=== PATIENT | female | born 1970 | race Caucasian/White ===

== ENCOUNTER 2024-10-03 12:57 | Outpatient (AMB) | payer OTHER, SELFPAY ==
--- OUTSIDE RECORDS SUMMARY | 2024-10-03 12:59 | XMS_ITS | Data Portability ---
Author Organization Formerly [facility] -[place], [facility] Address [address] [place] [address] Care Team Providers Care Butcher'S Assistant Name Role Phone WASHINGTON KHAN Primary Care Provider Assessment Encounter Date Assessment Date Assessment LastModified by Organization Details LastModified Time 05/28/2023 05/28/2023 - Reviewed medications and treatment plan with the patient - Discussed OTC medications for symptomatic control - Advised to f/u with PCP if symptoms do not improve or worsen - Patient is well-appearing and in no acute distress on discharge - Discussed reasons to call, return to the office, or go to the ED including new or worsening symptoms [email or web address] Not available 05/28/2023 10:21:41 Plan of Treatment Reminders Order Date Submit Date Provider Last Modified By Organization Details Last Modified Time Details Appointments None record ed. Lab None record ed. Referral None record ed. Procedures None record ed. Surgeries None record ed. Imaging None record ed. Medication Orders None record ed. Patient TargetsNo targets recorded. Patient InstructionsNo instructions recorded. Reason for Referral None Reported. Problems No Known Problems Procedures Surgical History Date Name Laterality Status Provider Name and Address Organization Details Recorded Time 3 Ear Cerumen Removal completed Margi Cortés NP [address] [facility] [place], [address], [facility] 05/28/2023 10:21:21 Imaging Results None recorded. Procedure Notes None recorded. Medical Equipment None Reported. Allergies No known drug allergies Medications Not known to be on any medication Vitals Date Recorded Respiratory rate Body height Body mass index (BMI) Body weight Heart rate Oxygen saturation Oxygen saturation in Arterial blood by Pulse oximetry Body temperature Systolic blood pressure Diastolic blood pressure Provider Name and Address Organization Details Last Updated DateTime 3 16 /min 170.18 cm 25.1 kg/m2 91716.7 8 g 65 /min 99 % 99 % 98.6 [degF] 108 mm[Hg] 70 mm[Hg] Dunia Hernandezkath [facility] 3 09:32:57 Social History Question Answer Notes LastModified by Organizat ion Details LastModified Time Tobacco Smoking Status Current Every Day [facility] 05/28/2023 09:31:04 What Is Your Level Of Alcohol Consumption? None Information not available 05/28/2023 How Much Tobacco Do You Smoke? 1 PPD Information not available 05/28/2023 Do You Use Any Illicit Or Recreational Drugs? No Information not available 05/28/2023 Sex: Unknown Functional Status None recorded. Mental Status None recorded. Family History Nothing Reported Notes:FamilyHistoryDetails:F ather- - Bone Cancer Mother- Alive Medical History No medical history recorded. Gynecological HistoryNo gynecological history recorded. Obstetrics History GPAL:G 0 P 0 0 0 0 Immunizations Vaccine Type Date Status Note Provider Nam e and Address Organization Details Recorded Time Influenza, MDCK, quadrivalent, PF 0 completed Dunia Davidempo [facility] 05/28/2023 09:31:10 COVID-19, mRNA, LNP-S, PF, 100 mcg/0.5mL dose or 50 mcg/0.25mL dose 1 completed Dunia Davidempo [facility] 05/28/2023 09:31:10 COVID-19 vaccine, vector-nr, rS-Ad26, PF, 0.5 mL 1 completed Dunia Shericejose albertoempo [facility] 05/28/2023 09:31:11 Tdap 1 completed Dunia Davidcorybeti [facility] 05/28/2023 09:31:11 Influenza, split virus, trivalent, preservative 1 completed Dunia palmer [facility]/[place]/ [place] 05/28/2023 09:31:11 Past Encounters Encounter ID Performer Location Encounter Start Date Encounter Closed Date Diagnosis/Indication Diagnosis SNOMED-CT Code Diagnosis ICD10 Code Diagnosis Note [id number] Margi Cortés NP [place] [place] [address] [place] [address] 05/28/2023 09:00:19 05/28/2023 10:34:10 Impacted cerumen of bilateral ears 7968426403 190755 H61.23 Consider OTC debrox or 1-2 drops mineral oil or baby oil once weekly to help soften ear wax.Approp riate use of qtips demonstrat ed. Reinforced avoidance of inserting q-tip into ear canal.Pt verbalized good understand ing. Health Concerns Section Related Observation LastModified by Organization Detai ls LastModified Time None Recorded Concern Status LastModified by Organization Details LastModified Time None Recorded Advance Directives Directive None Recorded Payers Encounter Date Sequence Insurance Name Policy Number Policy Joshi Covered Member ID Joshi Member ID Guarantor Name 05/28/2023 1 [facility] Coleman Kristan [id number] Tahira Rushing Notes Date Note Type Note Provider Name and Address Organization Details Recorded Time 05/28/2023 text/html 52 yo f presents with b/l ear blockage, left worse with decreased hearing Once yearly requires ear wax removal. Denies f/c, dizziness, ear pain, nasal congestion, cough Margi Cortés NP [address], [place], [address], [place] [facility]/[place] 05/28/2023 10:22:52 OBGyn Episode No OBEpisode recorded.
--- OUTSIDE RECORDS SUMMARY | 2024-10-03 12:59 | XMS_ITS | Data Portability ---
Author Organization [place] - [facility], [place] Address [address] [place] [address] Care Team Providers Care Area Mechanic Name Role Phone [facility] Primary Care Provider Assessment Encounter Date Assessment Date Assessment LastModified by Organization Details LastModified Time 05/27/2021 05/27/2021 Tahira is a 50 y/o who presents with dysfunctional uterine bleeding. TVUS from 02/2021 remarks on the following: -intramural fibroid at fundus measuring 2.7 by 2.8 by 3.0 cm -fundal fibroid measuring 3.3 by 2.8 by 3.6 cm -right sided intramural fibroid measuring 2.8 by 2.7 by 2.6 cm -EMS echogenic, measuring 9.1mm. -R ov 3.4 by 1.7 by 1.7 cm, thick walled 1.3 cm cyst representing CL -L ov 4.2 by 2.9 by 3.3 cm w/ complex cyst measuring 3.3 by 3.0 by 3.4 w/ thin reticular septations, likely hemorrhagic cyst. Addl simple cysts noted measuring up to 2.0cm Discussed differential diagnosis for DUB, including perimenopausal transition, endometrial polyp/hyperplasi a, and less likely cancer. Discussed my suspicion that this is likely 2/2 perimenopause. However, would recommend endometrial biopsy to rule out other potential etiologies. She is in agreement with this plan. U/S done in February 2021 also notable for hemorrhagic cyst. Cysts described are normal, pt reassured. Will order TVUS in the next month to follow up. She prefers to wait for EMB to be done at the time of U/S. All questions answered. Marquise Jordan MD, MPH [email or web address] Not available 05/27/2021 15:11:52 08/18/2021 08/18/2021 50 yo with AUB s/p EMB. Has f/u to discuss results with Dr. Garcia 08/26. [email or web address] Not available 08/18/2021 14:37:44 08/26/2021 08/26/2021 Tahira is a 50 y/o who presents for a telehealth visit to discuss the results of recently done TVUS and EMB. -reviewed nl EMB results -TVUS demonstrates stable uterine fibroids and simple ovarian cyst -given that her bleeding is improved and occurring less frequently than normal, discussed she is likely in the perimenopausal phase -she would prefer expectant management at this time unless bleeding worsens, in which case she will schedule a follow up to discuss other options -all questions answered Marquise Jordan MD, MPH [email or web address] Not available 08/26/2021 14:16:21 Plan of Treatment Reminders Order Date Submit Date Provider Last Modified By Organization Details Last Modified Time Details Appointments None recorded. Lab biopsy, endometria l 2020 021 [facility], [address] [place] [address], [address], 10:02:25 Referral None recorded. Procedures None recorded. Surgeries None recorded. Imaging None recorded. Medication Orders None recorded. Patient TargetsNo targets recorded. Patient InstructionsNo instructions recorded. Reason for Referral None Reported. Results Created Date Observation Date Name Description Value Unit Range Abnormal Flag Note LastModifiedBy Organization Detail LastModifiedTime 08/18/2008/24/2021 SURGI TITO PATHO LOGY REPOR T surgical pathology report Patie nt Name: Tahira Rushing XR Chart ID: [id number] [id number] Surgi tito Patho logy Repor t Colle cted: 08/18 18:00 EST Speci men #: [id number] Recei bladimir: 08/19 04:29 EST Surgi tito Patho logy Repor t - 08/24 15:26 EST - Auth (Veri fied) Diagn osis A. Endom etriu m, biops y: - Disin tegra ting endom etriu m with exoge nous hormo ne effec t, blood and mucus . CJS/j s 08/24 15:25 :27 EST C Scott Mc MD Elect abhishek boyce julian d: 08/24/ CS Clini tito Infor matio n AUB. N93.9 . Abnor mal uteri ne and vagin al bleed ing, unspe cifie d. Abnor mal bleed ing ?: Y. /sb Organ Or Tissu e Endom etriu m Gross Descr iptio n Recei bladimir in one part in forma royce label ed Tahira Rushing ( 10/06 ) endo metri um . It consi sts of mucus , blood clot and wilks soft tissu es altog ether measu ring 3 x 2 x 0.3 cm. (ax) (A1-A 3) TRISH/da d 08/19 11:40 :16 EST Not Available [facility] [address], [address], 08/24/2021 15:26:28 05/28/20 21 02/16/2021 MAMMO , scree cecilia, tomos ynthe sis, bilat eral No observ ation record ed. BARCODE Not Available 2020 13:24:40 08/19/20 21 08/18/2021 US, pelvi s, trans abdom inal + trans vagin al No observ ation record ed. esantamariaflor e Not Available 08/26/2021 09:57:58 Result Notes None recorded. Procedures Surgical History Date Name Laterality Status Provider Name and Address Organization Details Recorded Time 08/18/20 21 Endometrial Biopsy completed Annamarie Pak MD [address] [place] [address],[address], [place], [address], [facility] 08/18/2021 14:36:21 08/18/20 21 Pelvic Transvaginal Non-OB completed HUSSAIN GUILLAUME [address], [place], [address], [facility] 08/18/2021 15:23:37 Dilation and Curettage completed Ivania Harper [facility] 05/27/2021 12:47:57 Back Surgery completed Ivania Harper [facility] 05/27/2021 12:48:10 procedure on foot completed Ivania Harper [facility] 05/27/2021 12:48:21 Imaging Results Imaging Date Name Status LastModified by Organization Details LastModified Time 02/16/2021 MAMMO, screening, tomosynthesis, bilateral completed BARCODE Information not available 05/28/2021 13:24:40 08/18/2021 US, pelvis, transabdominal + transvaginal completed [email or web address] Information not available 08/26/2021 09:57:58 Procedure Notes None recorded. Medical Equipment None Reported. Allergies No known drug allergies Medications Name Sig Start Date Stop Date Status Note LastModified by Organization Details LastModified Time prednisone 10 mg tablet TAKE 5 TABLETS ON DAY 1 AND THEN DECREASE BY 1 TAB EACH DAY UNTIL FINISHED 05/27 completed Not Available Not Available Not Available lorazepam 0.5 mg tablet active Not Available Not Available Not Available Ear Wax Removal Drops 6.5 % active Not Available Not Available Not Available Vitals Date Recorded Body height Body mass index (BMI) Body weight Systolic blood pressure Diastolic blood pressure Provider Name and Address Organization Details Last Updated DateTime 05/27/2021 170.18 cm 25.5 kg/m2 68438.56 g 140 mm[Hg] 80 mm[Hg] Ivania Harper [facility] 13:09:46 Date Recorded Body height Body mass index (BMI) Body weight Systolic blood pressure Diastolic blood pressure Provider Name and Address Organization Details Last Updated DateTime 08/18/2021 170.18 cm 25.5 kg/m2 38740.56 g 132 mm[Hg] 78 mm[Hg] Ivania Harper [facility] 14:23:47 Social History Question Answer Notes LastModified by Organizat ion Details LastModified Time Tobacco Smoking Status Current Every Day [facility] 05/27/2021 12:49:55 Do You Have An Advance Directive? No Information not available 05/27/2021 What Is Your Level Of Alcohol Consumption? Occasional Information not available 05/27/2021 Are You Currently Employed? Yes Information not available 05/27/2021 What Is The Highest Grade Or Level Of School You Have Completed Or The Highest Degree You Have Received? 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 No Information not available 05/27/2021 What Was The Date Of Your Most Recent Tobacco Screening? 05/27/2021 Information not available 05/27/2021 What Is Your Relationship Status? Information not available 05/27/2021 Do You Use Your Seat Belt Or Car Seat Routinely? Yes Information not available 05/27/2021 At What Age Did You Start Smoking Tobacco? 14 Information not available 05/27/2021 How Much Tobacco Do You Smoke? 1 PPD Information not available 05/27/2021 Do You Use Any Illicit Or Recreational Drugs? No Information not available 05/27/2021 Do You Use Sunscreen Routinely? No Information not available 05/27/2021 How Many Years Have You Smoked Tobacco? 36 Information not available 05/27/2021 Do You Or Have You Ever Used Any Other Forms Of Tobacco Or Nicotine? No Information not available 05/27/2021 Sex: Unknown Functional Status Question Answer Note LastModified by Organizat ion Details LastModified Time What is your exercise level? Occasional Information not available 05/27/2021 Mental Status None recorded. Family History Relationship Description Onset Age of this Age Resolved Age Notes LastModified by Organization Details LastModified Time Maternal Aunt Malignant tumor of breast [email or web address] Not available 2020 12:48:55 Father Malignant tumor of prostate [email or web address] Not available 2020 12:49:04 Mother Hypertensive disorder [email or web address] Not available 2020 12:49:11 Medical History Condition Response Headaches/Migraines Y Gynecological History Statement/Question Response Sexual Orientation? Men Date of LMP 04/09/2021 History of Abnormal Pap Smear? N Sexually Active? Y STIs/STDs N HPV Vaccine N Date of Last Pap Smear Age at Menarche 13 Current Control Method None Most Recent Mammogram Obstetrics History GPAL:G 3 P 2 0 1 2 Type Value Full Term 2 Spontaneous 1 Living 2 Total 3 Past Encounters Encounter ID Performer Location Encounter Start Date Encounter Closed Date Diagnosis/Indication Diagnosis SNOMED-CT Code Diagnosis ICD10 Code Diagnosis Note [id number] MARQUISE JORDAN MD [facility] [address] [place] [address] 05/27/2021 12:15:23 05/27/2021 16:36:29 Abnormal uterine bleeding 2852080233 9100 N93.9 [id number] Annamarie Pak MD [facility] [address] [place] [address] 08/18/2021 13:51:00 08/18/2021 18:18:57 Abnormal uterine bleeding 4122489235 9100 N93.9 [id number] DIANELYS AVILES [facility] [address] [place] [address] 08/18/2021 13:50:16 08/18/2021 18:32:40 [id number] MARQUISE JORDAN MD [facility] [address] [place] [address] 08/26/2021 13:14:03 08/26/2021 18:47:53 Perimenopausal state 5089564263 03921 Z78.0 Health Concerns Section Related Observation LastModified by Organization Detai ls LastModified Time None Recorded Concern Status LastModified by Organization Details LastModified Time None Recorded Advance Directives Directive N: Payers Encounter Date Sequence Insurance Name Policy Number Policy Joshi Covered Member ID Joshi Member ID Guarantor Name 05/27/2021 1 [place] [id number] [employer] [facility] [id number] Tahira Nirk 08/18/2021 1 [place] [id number] [facility] [id number] Tahira Nirk 08/18/2021 1 [place] [facility] (PPO) [id number] Tahira Smithk [id number] Tahira Smithk 08/26/2021 1 [place] [facility] ([place]) [id number] Tahira Smithk [id number] Tahira Rushing Notes Date Note Type Note Provider Name and Address Organization Details Recorded Time 05/27/2021 text/html Tahira presents today as a referral from her PCP for irregular menses. Reports heavier than usual periods alternating with no menses since last July. She has not had a period in the last month. Was evaluated with TVUS that demonstrated multifibroid uterus and ovarian cysts. She presents today for further evaluation and discussion of next steps. Reports associated mood swings in the last few months. Also reports onset of hot flushes. [id number] x1, MAB w/ D&CPMH: deniesPSH: foot surgery, D&C, back surgeryMeds: NoneNKDA MARQUISE JORDAN MD [address] [place] [address],[place] [address], [place], [address], [facility] 05/27/2021 15:12:07 08/26/2021 text/html Tahira presents fo r telehealth visit to discuss results of US and EMB. Reports she is doing well. Has a period every other month now. Lasting 3-4 days. Sometimes heavy. MARQUISE JORDAN MD [address] [place] [address],[facility], [place], [address], [facility] 08/26/2021 14:16:51 OBGyn Episode Ob Episode Information Episode Created Date Number of Fetuses Patient Bloodtype Patient rh Status Prepregnancy Weight lbs Domestic Partner Domestic Partner Phone Father Name Hotel Operations Manager Status 05/27/20 21 1 CLOSED Fetus Data First Name Last Name Admitted to NICU Weight (g) Sex Living Outcome Pediatric Complications Fetus ID Race Codes Race Delivery Type 3486.76 1704 F Full Term [id number] Vaginal Delivery Juan Carlos Calculation Initial Juan Carlos Date Initial Exam Date Initial Exam Provider Initial Ultrasound Date Last Menstrual Period Date Ultra Sound Weeks Gestation 0 Eighteen To Twenty Week Juan Carlos Update Ultra Sound Date Fundal Height At Umbil Quickening Date Ultra Sound Latest Weeks Gestation Final Juan Carlos Confirmed By Final Juan Carlos Confirmed Date Final Juan Carlos Date Ultra Sound Latest Days Gestation 0 0 Menstrual History Last Menstrual Date Menses Monthly On Bcp Conception Prior Menses Frequency Hcg Plus Date Menarche Onset Age Delivery Information Delivery Date Delivery Type Labor Anesthesia Weeks Gestation Incision Type Labor Labor Length Hrs Delivered By Post Complications Tubal Sterilization Discharge Date Comments 8 Discharge Information Feeding Method Contraceptive Method Maternal HG B and HCT Levels Ob Episode Information Episode Created Date Number of Fetuses Patient Bloodtype Patient rh Status Prepregnancy Weight lbs Domestic Partner Domestic Partner Phone Father Name Hotel Operations Manager Status 05/27/20 21 1 CLOSED Fetus Data First Name Last Name Admitted to NICU Weight (g) Sex Living Outcome Pediatric Complications Fetus ID Race Codes Race Delivery Type 3855.53 2 M Full Term [id number] Vaginal Delivery Juan Carlos Calculation Initial Juan Carlos Date Initial Exam Date Initial Exam Provider Initial Ultrasound Date Last Menstrual Period Date Ultra Sound Weeks Gestation 0 Eighteen To Twenty Week Juan Carlos Update Ultra Sound Date Fundal Height At Umbil Quickening Date Ultra Sound Latest Weeks Gestation Final Juan Carlos Confirmed By Final Juan Carlos Confirmed Date Final Juan Carlos Date Ultra Sound Latest Days Gestation 0 0 Menstrual History Last Menstrual Date Menses Monthly On Bcp Conception Prior Menses Frequency Hcg Plus Date Menarche Onset Age Delivery Information Delivery Date Delivery Type Labor Anesthesia Weeks Gestation Incision Type Labor Labor Length Hrs Delivered By Post Complications Tubal Sterilization Discharge Date Comments 4 Discharge Information Feeding Method Contraceptive Method Maternal HG B and HCT Levels Ob Episode Information Episode Created Date Number of Fetuses Patient Bloodtype Patient rh Status Prepregnancy Weight lbs Domestic Partner Domestic Partner Phone Father Name Hotel Operations Manager Status 05/27/20 21 1 CLOSED Fetus Data First Name Last Name Admitted to NICU Weight (g) Sex Living Outcome Pediatric Complications Fetus ID Race Codes Race Delivery Type , Spontane ous [id number] Juan Carlos Calculation Initial Juan Carlos Date Initial Exam Date Initial Exam Provider Initial Ultrasound Date Last Menstrual Period Date Ultra Sound Weeks Gestation 0 Eighteen To Twenty Week Juan Carlos Update Ultra Sound Date Fundal Height At Umbil Quickening Date Ultra Sound Latest Weeks Gestation Final Juan Carlos Confirmed By Final Juan Carlos Confirmed Date Final Juan Carlos Date Ultra Sound Latest Days Gestation 0 0 Menstrual History Last Menstrual Date Menses Monthly On Bcp Conception Prior Menses Frequency Hcg Plus Date Menarche Onset Age Delivery Information Delivery Date Delivery Type Labor Anesthesia Weeks Gestation Incision Type Labor Labor Length Hrs Delivered By Post Complications Tubal Sterilization Discharge Date Comments 07/01/199 6 miscarri a ge Discharge Information Feeding Method Contraceptive Method Maternal HG B and HCT Levels
[2024-10-03 13:02] VITALS: BMI 25.8
--- NOTE | 2024-10-03 13:02 | A.SPINEOV_ITS ---
Vital Signs 10/03/24 13:02 Height 5 ft 7 in Weight 165 lb BMI 25.8 Intake Visit Reasons: Back pain Intake Note: Ms. Rushing is here today c/o low back pain difficulty walking. Graphic Design Teacher Required: No Allergies No Known Allergies Allergy (Verified 10/03/24 13:04) Physical Exam Vital Signs: BMI result Body Mass Index 25.8 Assessment & Plan Assessment & Plan (1) Lumbar disc herniation with radiculopathy: Code(s): M51.16 - Intervertebral disc disorders with radiculopathy, lumbar region Category: Medical Plan Dear colleague On 10/03/2024, I saw for an urgent consult done Kristan with a chief complaint of severe progressive left leg pain. HPI: This 53-year-old female has a history of a lumbar microdiskectomy L5-S1 in 2013 for left-sided leg pain at [facility]. She completely recovered. On 08/23/2024 she suddenly developed left-sided back pain in the next day she was unable to walk. The pain subsided slightly until 10 days ago when she developed severe pain radiating down her left buttock into her calf. She was evaluated by a primary care physician in advised to lay in bed. She denies numbness or weakness but the pain is unbearable. She currently takes codeine for pain control. Tylenol and anti-inflammatory drugs are not helpful. PMH: Noncontributory Medications: Codeine Allergies: NKDA Social history: Employed Physical Exam: Pleasant female in distress due to pain. Straight leg raise is positive at 20 degrees on the left side with radiating pain down her left leg. Motor exam and sensory exam are intact. Ankle reflexes absent on the left side. She walks with an antalgic gait and she stands deviated towards the right side. Radiological Studies: Imaging is not available and will be ordered Impression/Plan: This 53-year-old female is suffering from an acute lumbar radiculopathy most likely due to a recurrent disc herniation L5-S1. The symptoms have been going on for more than 5 weeks and have exacerbated in the last 10 days. I will order an urgent MRI and the patient will drop off the disc for review. Thank you for allowing me to participate in your patients care. total time spent was 50 minutes in counseling ,coordination of plan, personal review of imaging, surgical decision making and subsequent plan Marvin Montano MD, PhD Spine Fellowship Trained Neurosurgeon Director, [facility] Orders: Orders MR lumbar spine wo con Today M51.16 - Intervertebral disc disorders with radiculopathy, lumbar region Coding Level of Care Code New Pt Level 4 (75707) Diagnoses Lumbar disc herniation with radiculopathy M51.16
== END 2024-10-03 13:35 | disposition home or self-care (01) ==
PROVIDERS: Visit Provider Neurological Surgery
DX: M51.16 Intervertebral disc disorders with radiculopathy, lumbar region (principal)
CPT/HCPCS: 99204

== ENCOUNTER → 2024-10-03 12:57 | Outpatient (BNVA) | payer OTHER, SELFPAY | PROVIDERS: Visit Provider Neurological Surgery ==

== ENCOUNTER 2024-10-09 09:01 | Outpatient (REF) | payer OTHER, SELFPAY ==
--- OUTSIDE RECORDS SUMMARY | 2024-10-09 09:36 | XMS_ITS | Data Portability ---
Author Organization [place] - [facility], [facility] Address [address] [place] [address] Care Team Providers Care Agricultural Engineering Technician Name Role Phone [facility] Primary Care Provider Assessment Encounter Date [...] recorded. Lab biopsy, endometria l 2020 021 [facility], [address] [place] [address], [address], 10:02:25 Referral None recorded. Procedures None recorded. [...] nt Name: Tahira Rushing XR Chart ID: [id number] [id number] Surgi tito Patho logy Repor t Colle cted: 08/18 18:00 EST Speci men #: [id number] Recei bladimir: 08/19 04:29 EST Surgi [...] d 08/19 11:40 :16 EST Not Available [facility] [address], [address], 08/24/2021 15:26:28 05/28/20 21 02/16/2021 MAMMO , [...] 21 Endometrial Biopsy completed Annamarie Pak MD [address] [place] [address],[address], [place], [address], [facility] 08/18/2021 14:36:21 08/18/20 21 Pelvic Transvaginal Non-OB completed HUSSAIN GUILLAUME [address], [place], [address], [facility] 08/18/2021 15:23:37 Dilation and Curettage completed Ivania Harper [facility] 05/27/2021 12:47:57 Back Surgery completed Ivania Harper [facility] 05/27/2021 12:48:10 procedure on foot completed Ivania Harper [facility] 05/27/2021 12:48:21 Imaging Results Imaging Date [...] Updated DateTime 05/27/2021 170.18 cm 25.5 kg/m2 26232.56 g 140 mm[Hg] 80 mm[Hg] Ivania Harper [facility] 13:09:46 Date Recorded Body height Body mass index (BMI) Body weight Systolic blood pressure Diastolic blood pressure Provider Name and Address Organization Details Last Updated DateTime 08/18/2021 170.18 cm 25.5 kg/m2 64504.56 g 132 mm[Hg] 78 mm[Hg] Ivania Harper [facility] 14:23:47 Social History Question Answer Notes [...] Or The Highest Degree You Have Received? 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 In EP Information not available [...] SNOMED-CT Code Diagnosis ICD10 Code Diagnosis Note [id number] MARQUISE JORDAN MD [facility] [address] [place] [address] 05/27/2021 12:15:23 05/27/2021 16:36:29 Abnormal uterine bleeding [id number] 9100 N93.9 [id number] Annamarie Pak MD [facility] [address] [place] [address] 08/18/2021 13:51:00 08/18/2021 18:18:57 Abnormal uterine bleeding [id number] 9100 N93.9 [id number] DIANELYS AVILES [facility] [address] [place] [address] 08/18/2021 13:50:16 08/18/2021 18:32:40 [id number] MARQUISE JORDAN MD [facility] [address] [place] [address] 08/26/2021 13:14:03 08/26/2021 18:47:53 Perimenopausal state [id number] 83354 Z78.0 Health Concerns Section Related Observation LastModified by Organization Detai ls LastModified Time None Recorded Concern Status LastModified by Organization Details LastModified Time None Recorded Advance Directives Directive N: Payers Encounter Date Sequence Insurance Name Policy Number Policy Joshi Covered Member ID Joshi Member ID Guarantor Name 05/27/2021 1 [place] [id number] [facility] [id number] Tahira Nirk 08/18/2021 1 [place] [id number] [facility] [id number] Tahira Nirk 08/18/2021 1 [place] [facility] (PPO) [id number] Tahira Smithk [id number] Tahira Smithk 08/26/2021 1 [place] [facility] (PPO) [id number] Tahira Smithk [id number] Tahira Rushing Notes Date Note Type [...] months. Also reports onset of hot flushes. [id number] x1, MAB w/ D&CPMH: deniesPSH: foot surgery, D&C, back surgeryMeds: NoneNKDA MARQUISE JORDAN MD [address] [place] [address],[place] [address], [place], [address], [facility] 05/27/2021 15:12:07 08/26/2021 text/html Tahira presents fo r telehealth visit to discuss results of US and EMB. Reports she is doing well. Has a period every other month now. Lasting 3-4 days. Sometimes heavy. MARQUISE JORDAN MD [address] [place] [address],SUITE [facility], [place], [address], [facility] 08/26/2021 14:16:51 OBGyn Episode Ob Episode Information Episode Created Date Number of Fetuses Patient Bloodtype Patient rh Status Prepregnancy Weight lbs Domestic Partner Domestic Partner Phone Father Name Contract Agent Status 05/27/20 21 1 CLOSED Fetus Data First Name Last Name Admitted to NICU Weight (g) Sex Living Outcome Pediatric Complications Fetus ID Race Codes Race Delivery Type 3486.76 1704 F Full Term [id number] Vaginal Delivery Juan Carlos Calculation Initial Juan [...] Domestic Partner Domestic Partner Phone Father Name Contract Agent Status 05/27/20 21 1 CLOSED Fetus Data First Name Last Name Admitted to NICU Weight (g) Sex Living Outcome Pediatric Complications Fetus ID Race Codes Race Delivery Type 3855.53 2 M Full Term [id number] Vaginal Delivery Juan Carlos Calculation Initial Juan [...] Domestic Partner Domestic Partner Phone Father Name Contract Agent Status 05/27/20 21 1 CLOSED Fetus Data First Name Last Name Admitted to NICU Weight (g) Sex Living Outcome Pediatric Complications Fetus ID Race Codes Race Delivery Type , Spontane ous [id number] Juan Carlos Calculation Initial Juan Carlos Date [...]
== END 2024-10-09 09:02 | disposition home or self-care (01) ==
LOC: CF 09:01
DX: Z13.89 Encounter for screening for other disorder (principal)

== ENCOUNTER 2024-10-17 06:51 | Day surgery (SDC) | payer OTHER, SELFPAY ==
[2024-10-12 13:24] VITALS: BMI 26.2
--- NOTE | 2024-10-15 14:45 | HO.ANESPROP2 ---
Documented by User: Enriqueta Kate NP 10/15/24 14:46 HPI - Anesthesia Eval Consult details Narrative: 54yo F for Left L5-S1 REDO Microdiscectomy, 10/17/24 PMFSH Active Problems Active Problems: All Active Problems Lumbar disc herniation with radiculopathy (Acute) Past Medical History Medical History Shingles Miscarriage Nicotine dependence, unspecified, uncomplicated Melanocytic nevi of lip Inflamed seborrheic keratosis Herniated lumbar intervertebral disc Ceruminosis Environmental and seasonal allergies Depression Anxiety Current every day smoker Sciatica of left side Habitual snoring Asthma Elevated cholesterol Back pain Surgical History Surgical History History of foot surgery History of back surgery Social History Social History Are you a primary healthcare representative to a significant other at home: No Do you presently have visiting nurse or other home services: No Patient Tobacco Use Status: Current everyday Tobacco user Tobacco use type: Cigarette Cigarette Packs Per Day: 1.0 Cigarettes Per Day: 20.0 Use of substances other than those prescribed or required for medical reasons: No Have you been hit, kicked, punched, or otherwise hurt by someone within the past year? If so, by whom?: No Are you DNR?: No Advance Directives: No Advance Directives Information Provided: Yes Advance Directives on File: No Recently lost weight without trying: No Eating poorly because of decreased appetite: No Nutrition Risks: No Nutritional Risk Patient : No : No Poor oral hygiene: Yes (missing teeth and one broken tooth) Meds Allergies Allergy/AdvReac Type Severity Reaction Status Date / Time No Known Allergies Allergy Verified 10/17/24 07:35 Home Medications ?Medication ?Instructions ?Recorded ?Confirmed ?Last Taken ?Type acetaminophen 300 mg-codeine 30 mg 1 tab PO TID PRN Pain 10/12/24 10/12/24 Unknown History tablet multivitamin 1 tab PO DAILY 10/12/24 10/12/24 Unknown History Exam Height,Weight and Vital Signs: Height 5 ft 7 in Weight 75.75 kg Pertinent Lab Results Pertinent Lab Results: CBC and BMP 02/2024 OK Assessment and Plan Assessment Anesthesia Assessment: Chart Reviewed Documented by User: Mel Alcocer MD 10/17/24 10:48 HPI - Anesthesia Eval Consult details Narrative: 54yo F for Left L5-S1 Microdiscectomy REDO, 10/17/24 PMFSH Past Medical History Medical History Shingles Miscarriage Nicotine dependence, unspecified, uncomplicated Melanocytic nevi of lip Inflamed seborrheic keratosis Herniated lumbar intervertebral disc Ceruminosis Environmental and seasonal allergies Depression Anxiety Current every day smoker Sciatica of left side Habitual snoring Asthma Elevated cholesterol Back pain Family History Family history of problems with anesthesia: No Surgical History Surgical History History of foot surgery History of back surgery History of Problems with Anesthesia: No Social History Social History Are you a primary healthcare representative to a significant other at home: No Do you presently have visiting nurse or other home services: No Patient Tobacco Use Status: Current everyday Tobacco user Tobacco use type: Cigarette Cigarette Packs Per Day: 1.0 Cigarettes Per Day: 20.0 Use of substances other than those prescribed or required for medical reasons: No Have you been hit, kicked, punched, or otherwise hurt by someone within the past year? If so, by whom?: No Are you DNR?: No Advance Directives: No Advance Directives Information Provided: Yes Advance Directives on File: No Recently lost weight without trying: No Eating poorly because of decreased appetite: No Nutrition Risks: No Nutritional Risk Patient : No : No Poor oral hygiene: Yes (missing teeth and one broken tooth) Meds Allergies Allergy/AdvReac Type Severity Reaction Status Date / Time No Known Allergies Allergy Verified 10/17/24 07:35 Home Medications ?Medication ?Instructions ?Recorded ?Confirmed ?Last Taken ?Type acetaminophen 300 mg-codeine 30 mg 1 tab PO TID PRN Pain 10/12/24 10/12/24 Unknown History tablet multivitamin 1 tab PO DAILY 10/12/24 10/12/24 Unknown History Exam Height,Weight and Vital Signs: Height 5 ft 7 in Weight 75.75 kg Vital Signs Temp Pulse Resp BP Pulse Ox O2 Del Method 10/17/24 07:33 98.0 F 67 14 121/66 96 Room Air Pertinent Lab Results Pertinent Lab Results: CBC and BMP 02/2024 OK Airway Mallampati Class: II TM Dist: >3cm Neck ROM: Full Loose/Missing/Broken Teeth: Yes (Broken tooth top left back. Missing tooth top left back. Denies loose teeth) Heart: RRR Lungs: CTAB Assessment and Plan Assessment Anesthesia Assessment: Anesthesia Plan Discussed and Chart Reviewed Final Anesthetic Review Family History of Problems with Anesthesia: No History of Problems with Anesthesia: No NPO: Yes ASA Class: II Final Preanesthetic Review: No Changes in Pt Med Stat, Meds/Allgs Chart Reviewed, Consent Obtained/Reviewed and Anes Risks/Benef Reviewed Patient Risk: Intermediate Procedure Risk: Low Assessment/Block/Sedation in SS: Assess/Block/Sedation-SS Anesthetic Plan Anesthetic Plan: GA Disposition: Standard PACU
[2024-10-17] VITALS (11 sets, daily range): BP systolic 110–130; BP diastolic 59–66; PULSE 61–88; RESP 12–17; TEMP 36.1–36.7; O2SAT 96–99; BMI 26.9
--- NOTE | ~2024-10-17 | FL_ITS ---
EXAMINATION: FL GUIDANCE ONLY HISTORY: l5-s1 discectomy COMPARISON: Correlation is made with an outside MRI of the lumbar spine dated 10/04/2024. TECHNIQUE: Fluoroscopy time: 4.1 minutes. Cumulative Dose: 2.9238 mGy. DAP: 0.9467 uGy-m2 (microgray-meter squared). Images: 1. FINDINGS: A single fluoroscopic spot film of the lumbar spine in the lateral projection demonstrates a probe in the L5-S1 intervertebral disc space from a posterior approach. FL/FL guidance in OR IMPRESSION: Fluoroscopy during procedure. Please see procedure report for additional information. Electronically signed by: Mikal Tam MD 10/18/2024 08:22 AM DEST[place]
--- OUTSIDE RECORDS SUMMARY | 2024-10-17 06:54 | XMS_ITS | Clinical Summary ---
Author Organization [facility] [address] Address [address] [place] [address], [address] Care Team Providers Care Service Supervisor Name Role Phone Unavailable Primary Care Provider Unavailabl e Social History Tobacco Use Types Packs/Day Years Used Date Smoking Tobacco: Never Assessed Sex and Gender Information Value Date Recorded Sex Assigned at Not on file Gender Identity Not on file Sexual Orientation Not on file Plan of Treatment Not on file
--- OUTSIDE RECORDS SUMMARY | 2024-10-17 06:54 | XMS_ITS | Continuity of Care Document ---
Author [facility] Address [address] [place] [address] Problems Unknown Problems Results Test Value / Unit Interpretation Reference Ran ge SARS-COV-2 (COVID-19),PCR[94 [id number]]?Collected: 01/17/2020 06:57 PM?Specimen Received: 01/17/2020 06:57 PM? SARS COV-2 INTERPRETATION [[id number]] Negative Mariza l Negative Comment for COVID19 SARS-COV -2 LRNegative (Not Detected) results do not exclude infectioncaused by SARS-CoV-2 and should not be used as the solebasis for treatment or other patient management decisions.Optimum specimen types and timing for peak viral levelsduring infections caused by SARS-CoV-2 have not beendetermined. Collection of multiple specimens (types and timepoints) from the same patient may be necessary to detect thevirus. Improper specimen collection and handling, sequencevariability underlying assay primers and/or probes, or thepresence of organisms in quantities less than the limit ofdetection of the assay may lead to false negative results.Positive and negative predictive values of testing arehighly dependent on prevalence. False negative results aremore likely when prevalence of disease is high.The expected result is Negative (Not Detected).The SARS-CoV-2 test is intended for the presumptivequalitative detection of nucleic acid from LVEP-OwE-0se upper and lower respiratory specimens. Testingmethodology is real-time RT- PCR.Test results must be correlated with clinical presentationand evaluated in the context of other laboratory andepidemiologic data. Test performance can be affectedbecause the epidemiology and clinical spectrum ofinfection caused by SARS-CoV-2 is not fully known. Forexample, the optimum types of specimens, and when tocollect during the course of infection, may not be known.Fact Sheet for Healthcare Providers:https://MedLink/e7jedud(or: https://www.cdc.gov/coronavirus/2019-ncov/downloads/Qrwgtquno-rvh-Nptrcziiru-Pro vider s-nCoV.pdf)Fact Sheet for Patients:https://MedLink/iadw21q(or: https://www.cdc.gov/coronavirus/2019ncov/downloads/Cghodrfzc-rxv-Xkgskmmi- nCoV. pdf)This assay is a real time Reverse Transcriptase PCR assay.It is a Laboratory Developed Test (LDT) validated by [employer] Validation demonstrated the assay hasacceptable characteristics to detect COVID-19 from humanclinical respiratory specimens. Independent review of thisassay by the FDA is not final at this time.[employer] [address] [place] [address] [id number] Director: Wally Warren M.D. [facility]# [id number] Allergies, adverse reactions, alerts No known allergies and adverse reactions Medications No administered medications reported Vital Signs No vital signs reported Social History No smoking Hx information available
--- OUTSIDE RECORDS SUMMARY | 2024-10-17 06:54 | XMS_ITS | Clinical Summary ---
Author Organization [facility] Address [address] [place] [address] Care Team Providers Care Emt I/85 Name Role Phone No, Pcp AEROSPACE STRESS ENGINEER Primary Care Provider Unavailabl e Social History Tobacco Use Types Packs/Day Years Used Date Smoking Tobacco: Never Assessed Comments Unknown Sex and Gender Information Value Date Recorded Sex Assigned at Not on file Legal Sex Female 9:03 AM EST Gender Identity Not on file Sexual Orientation Not on file Plan of Treatment Health Maintenance Due Date Last Done Comments Colorectal Cancer: COLONOSCO PY Screening every 10 yrs (or Modifier) 1971 Depression: Screening Annual ly using PHQ-2/9 in Adults 18 yrs or above (or HM Modifier)([facility]) 1989 Hepatitis C Virus Infection in Adolescents and Adults: Screening (or Modifier) ([facility]) 1989 SDCT Screening Reminder: Amy young for all adults ([facility]) 1989 Tobacco Smoking Cessation: i n Adults excluding Women: Behavioral and Pharmacotherapy Interventions ([facility]) 1989 DTaP/Tdap/Td Vaccines ([facility]) (1 - Tdap) 1990 Cervical Cancer Screenin 1-65 yrs of age (or Modifier) 1992 Cervical Cancer Screening: P ap every 3 yrs pts age 21-65 1992 Cervical Cancer: Pap Screeni ng with Modifier timing ([facility]) 1992 Cervical Cancer: hrHPV alone or with cotesting Pap for Pts 30-65yrs screening every 5yrs ([facility]) 1992 Colorectal Cancer Screening 45 -75 Yrs (or HM Modifier) 2016 Colorectal Cancer: FLEXIBLE SIGMOIDOSCOPY Screening every 5 yrs 2016 Colorectal Cancer: Fecal Immunochemical Test (FIT) Annually [facility] 2016 Colorectal Cancer: High-sens itivity gFOBT Screening Annually [facility] 2016 Colorectal Cancer: Stool Col oguard Screening every 3 yrs 2016 Colorectal Cancer:CT Colonog michael Screening every 5 yrs 2016 Lipid Screening: Every 5 yrs for Women aged 45+ (or HM Modifier) ([facility]) 2017 Breast Cancer: Screening Amy ually age 50-74 yrs (or HM Modifier)([facility]) 2021 Zoster/Shingles Vaccine Seri es Screening: Adults aged 18+ yrs (or HM Modifiers)([facility]) (1 of 2) 2021 Flu Vaccination: Yearly for ages 18mos through 64 years (or Modifier)([facility]) 04/26/2024 COVID-19 Vaccine Screening: Initial Series and Booster Status ([facility]) (2023- season) 2024 Pneumococcal Vaccination Scr eening: Pts 0-19 & 19-64 yrs of age ([facility]) Aged Out No longer eligible based on patient's age to complete this topic Medical Devices Not on file Care Teams Emt I/85 Relationship Specialty Start Date End Date No, Pcp, AEROSPACE STRESS ENGINEER N/A Do not use PCP - General Family Medicine 11/13/20
--- OUTSIDE RECORDS SUMMARY | 2024-10-17 06:54 | XMS_ITS | Data Portability ---
Author Organization [facility], [facility] Address [address] [place] [address] Care Team Providers Care Senior Electronics Design Engineer Name Role Phone WASHINGTON KHAN Primary Care [...] Cerumen Removal completed Margi Cortés NP [address] [facility], [address], [place], [address], [facility]/[place] 05/28/2023 10:21:21 Imaging Results None recorded. Procedure Notes None recorded. Medical Equipment None Reported. Allergies No known drug allergies Medications Not known to be on any medication Vitals Date Recorded Respiratory rate Provider Name a nd Address Organization Details Last Updated DateTime 05/28/2023 16 /min Dunia Interiano [facility]/[place] 05/28/2023 09:30:05 Date Recorded Body height Provider Name an d Address Organization Details Last Updated DateTime 05/28/2023 170.18 cm Dunia Interiano [facility] 05/28/2023 09:30:10 Date Recorded Body mass index (BMI) Body weight Provider Name and Address Organization Details Last Updated DateTime 05/28/2023 25.1 kg/m2 96645.78 g Dunia Interiano [facility]/[place] 05/28/2023 09:30:24 Date Recorded Heart rate Provider Name an d Address Organization Details Last Updated DateTime 05/28/2023 65 /min Dunia Interiano [facility]/[place] 05/28/2023 09:31:31 Date Recorded Oxygen saturation Oxygen saturation in Arterial blood by Pulse oximetry Provider Name and Address Organization Details Last Updated DateTime 05/28/2023 99 % 99 % Dunia Interiano [facility] /[place] 05/28/2023 09:31:35 Date Recorded Body temperature Provider Name a nd Address Organization Details Last Updated DateTime 05/28/2023 98.6 [degF] Dunia Interiano [facility]/[place] 05/28/2023 09:31:58 Date Recorded Systolic blood pressure Diastolic blood pressure Provider Name and Address Organization Details Last Updated DateTime 05/28/2023 108 mm[Hg] 70 mm[Hg] Dunia Interiano [facility]/[place]/ [place] 05/28/2023 09:32:57 Social History Question Answer Notes LastModified by Organizat ion Details LastModified Time Tobacco Smoking Status Current Every Day Smoker Dunia Leolabeti palmer [facility]/[place]/ [place] 05/28/2023 09:31:04 What Is Your Level Of [...] Immunizations Vaccine Type Date Status Note Provider Issa mcduffie and Address Organization Details Recorded Time Influenza, MDCK, quadrivalent, PF 0 completed Dunia Buontempo null, [facility]/ [place] 05/28/2023 09:31:10 COVID-19, mRNA, LNP-S, PF, 100 mcg/0.5mL dose or 50 mcg/0.25mL dose 1 completed Dunia Buontempo null, [facility]/ [place] 05/28/2023 09:31:10 COVID-19 vaccine, vector-nr, rS-Ad26, PF, 0.5 mL 1 completed Dunia Buontempo null, [facility]/ [place] 05/28/2023 09:31:11 Tdap 1 completed Dunia Buontempo null, [facility]/ [place] 05/28/2023 09:31:11 Influenza, split virus, trivalent, preservative 1 completed Dunia Buontempo null, [facility]/ [place] 05/28/2023 09:31:11 Past Encounters Encounter ID Performer Location Encounter Start Date Encounter Closed Date Diagnosis/Indication Diagnosis SNOMED-CT Code Diagnosis ICD10 Code Diagnosis Note [id number] Margi Cortés NP [facility] [address], [place] [address] 05/28/2023 09:00:19 05/28/2023 10:34:10 Impacted cerumen of bilateral ears [id number] H61.23 Consider OTC debrox or 1-2 drops [...] Joshi Member ID Guarantor Name 05/28/[address] [facility] Freeman Cee Kristan [id number] Tahira Kristan Notes Date Note Type Note Provider Name and Address Organization Details Recorded Time 05/28/2023 text/html 52 yo f presents with b/l ear blockage, left worse with decreased hearing Once yearly requires ear wax removal. Denies f/c, dizziness, ear pain, nasal congestion, cough Margi Cortés NP [address], [place], [address], [facility]-[place] 05/28/2023 10:22:52 OBGyn Episode No OBEpisode recorded.
--- OUTSIDE RECORDS SUMMARY | 2024-10-17 06:54 | XMS_ITS | Clinical Summary ---
Author Organization [facility] Address [address] [place] [address] Care Team Providers Care Spa Associate Name Role Phone Pretty Lu Primary Care Provider [phone] Social History Tobacco Use Types Packs/Day Years Used Date Smoking Tobacco: Never Assessed Comments Unknown Sex and Gender Information Value Date Recorded Sex Assigned at Not on file Legal Sex Female 2:44 AM EST Gender Identity Not on file Sexual Orientation Not on file Plan of Treatment Health Maintenance Due Date Last Done Comments HEPATITIS C SCREENING 1988 MAMMOGRAM 2011 COLONOSCOPY (CRC) 2016 COLORECTAL CANCER SCREENING (CRC) 2016 CT COLONOGRAPHY (CRC) 2016 FIT-DNA (CRC) 2016 FIT/iFOBT (CRC) 2016 SIGMOIDOSCOPY (CRC) 2016 ZOSTER VACCINE (1 of 2) 2021 Pap Smear 02/28/2024 02/27/2021, 07/26/2017 INFLUENZA VACCINE (#1) 2024 , 06/22/2020, 06/22/2020, Additional history exists COVID-19 IMMUNIZATION ( season) 2024 07/30/2021, 12/31/2020 Cervical Cancer Screening 02/27/2026 HPV Test 02/27/2026 02/27/2021, 06/28, 10/26/2011 DTAP/TDAP/TD VACCINES (3 - Td or Tdap) 02/27/2031 02/27/2021, 10/22/2010 RSV IMMUNIZATION (1 - 1-dose 75+ series) 2046 IPV VACCINES Aged Out No longer eligi ble based on patient's age to complete this topic Procedures Procedure Name Priority Date/Time Associated Diagnosis Comments +HPV, DNA PROBE, AMPLIFIED Routine 02/27/2021 9:51 AM EDT CYTOLOGY, DIRECT SUPPORT STAFF Timed 02/27/2021 Encounter for gynecological examination without abnormal finding Screening for malignant neoplasm of cervix from Last 3 Months or Most Recently Relevant to Health Maintenance Results * HPV, DNA Probe, Amplified (02/27/2021 9:51 AM EDT) HPV DNA Probe [id number] 9:52 AM EDT Comment:HPV received in lab. HPV DNA negative 03/06/2021 9:08 AM EDT Comment: High Risk HPV mRNA Not Detected by DNA Probe. Assay is FDA-cleared for cervical specimens in Thin prep vials collected with either a broom type device or endocervical brush. Vaginal samples collected by these devices into Thin prep vials has been validated by the laboratory. A negative result may be due to insufficient amount of cellular material. Correlation of HPV and cytology results is required. HPV Probe Perf By Footnote 03/06/2021 9:08 AM EDT Comment: Test Performed by: [facility] [place] [address] 02/27/2021 9:51 AM EDT 03/04/2021 9:[address] [facility] MICROBIOLOGY - GENERAL ORDE RABLES Final Result Performing Organization Address [facility] Co de Phone Number [facility] [address] [place] [phone] * Cytology, DIRECT SUPPORT STAFF (PAP) (02/27/2021) Specimen from genital system (specimen) 02/27/2021 03/03/2021 9:[address] [facility] PATHOLOGY/CYTOLOGY ORDERABL ES Final Result Performing Organization Address [facility] Co de Phone Number [facility] [address] [place] [phone] from Last 3 Months or Most Recently Relevant to Health Maintenance Insurance Care Teams Spa Associate Relationship Specialty Start Date End Date Pretty Lu PA [address] [place], [place] [id number] PCP - General Physician Email Marketing Assistant 03/24/24
--- OUTSIDE RECORDS SUMMARY | 2024-10-17 06:54 | XMS_ITS | Data Portability ---
Author Organization [place] [facility], [facility] Address [address] [place] [address] Care Team Providers Care Cook Cold Meat Name Role Phone [facility] Primary Care Provider Assessment Encounter Date [...] recorded. Lab biopsy, endometria l 2020 021 [facility], [address] [place] [address], [address], 10:02:25 Referral None recorded. Procedures None recorded. [...] nt Name: Tahira Rushing XR Chart ID: [id number] [id number] Surgi tito Patho logy Repor t Colle cted: 08/18 18:00 EST Speci men #: [id number] Recei bladimir: 08/19 04:29 EST Surgi [...] d 08/19 11:40 :16 EST Not Available [facility] [address], [address], 08/24/2021 15:26:28 05/28/20 21 02/16/2021 MAMMO , [...] 21 Endometrial Biopsy completed Annamarie Pak MD [address] [place] [address],[address], [place], [address], [facility] 08/18/2021 14:36:21 08/18/20 21 Pelvic Transvaginal Non-OB completed HUSSAIN GUILLAUME [address], [place], [address], [facility] 08/18/2021 15:23:37 [facility]ilation [facility] 12:47:57 Back Surgery [facility] 05/27/2021 12:48:10 procedure on foot [facility]/27/2021 12:48:21 Imaging Results Imaging Date Name [...] Not Available Vitals Date Recorded Body height Provider Name an d Address Organization Details Last Updated DateTime 05/27/2021 170.18 cm Ivania Chase rn [facility] 05/27/2021 13:03:33 Date Recorded Body mass index (BMI) Body weight Provider Name and Address Organization Details Last Updated DateTime 05/27/2021 25.5 kg/m2 93977.56 g Ivania Harper [facility] 05/27/2021 13:09:42 Date Recorded Body height Provider Name an d Address Organization Details Last Updated DateTime 08/18/2021 170.18 cm Ivania Chase rn [facility] 08/18/2021 14:03:58 Date Recorded Body mass index (BMI) Body weight Provider Name and Address Organization Details Last Updated DateTime 08/18/2021 25.5 kg/m2 07859.56 g Ivania Harper [facility] 08/18/2021 14:23:37 Date Recorded Systolic blood pressure Diastolic blood pressure Provider Name and Address Organization Details Last Updated DateTime 05/27/2021 140 mm[Hg] 80 mm[Hg] Ivania Harper [facility] 05/27/2021 13:09:46 Date Recorded Systolic blood pressure Diastolic blood pressure Provider Name and Address Organization Details Last Updated DateTime 08/18/2021 132 mm[Hg] 78 mm[Hg] Ivania Harper [facility] 08/18/2021 14:23:47 Social History Question Answer Notes LastModified by Organizat ion Details LastModified Time Tobacco Smoking Status Current Every Day Smoker Ivania Harper [facility], [facility] 05/27/2021 12:49:55 Do You Have An Advance Directive? No Information not available 05/27/2021 What Is Your Level Of Alcohol Consumption? Occasional Information not available 05/27/2021 Are You Currently Employed? Yes Information not available 05/27/2021 What Is The Highest Grade Or Level Of School You Have Completed Or The Highest Degree You Have Received? 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 No [...] SNOMED-CT Code Diagnosis ICD10 Code Diagnosis Note [id number] MARQUISE JORDAN MD [facility] [address] [address] 05/27/2021 12:15:23 05/27/2021 16:36:29 Abnormal uterine bleeding [id number] 9100 N93.9 [id number] Annamarie Pak MD [facility] [address] [address] 08/18/2021 13:51:00 08/18/2021 18:18:57 Abnormal uterine bleeding 7619838083 9100 N93.9 [id number] DIANELYS AVILES [facility] [address] [address] 08/18/2021 13:50:16 08/18/2021 18:32:40 [id number] MARQUISE JORDAN MD [facility] [address] [address] 08/26/2021 13:14:03 08/26/2021 18:47:53 Perimenopausal state [id number] 46026 Z78.0 Health Concerns Section Related Observation LastModified by Organization Detai ls LastModified Time None Recorded Concern Status LastModified by Organization Details LastModified Time None Recorded Advance Directives Directive N: Payers Encounter Date Sequence Insurance Name Policy Number Policy Joshi Covered Member ID Joshi Member ID Guarantor Name 05/27/2021 1 [place] [id number] Tahira Nirk [id number] Tahira Nirk 08/18/2021 1 [place] [id number] Tahira Nirk [id number] Tahira Nirk 08/18/2021 1 [place] [id number] Tahira Nirk [id number] Tahira Nirk 08/26/2021 1 [place] [id number] Tahira Nirk [id number] Tahira Nirk Notes Date Note Type Note Provider Name [...] months. Also reports onset of hot flushes. [id number] x1, MAB w/ D&CPMH: deniesPSH: foot surgery, D&C, back surgeryMeds: NoneNKDA MARQUISE JORDAN MD [address] [place] [address],[address] [facility], [place], [address], [place] [facility] 05/27/2021 15:12:07 08/26/2021 text/html Tahira presents fo r telehealth visit to discuss results of US and EMB. Reports she is doing well. Has a period every other month now. Lasting 3-4 days. Sometimes heavy. MARQUISE JORDAN MD [address] [place] [address],[address], [place], [address], [facility] 08/26/2021 14:16:51 OBGyn Episode Ob Episode Information Episode Created Date Number of Fetuses Patient Bloodtype Patient rh Status Prepregnancy Weight lbs Domestic Partner Domestic Partner Phone Father Name Mixing Plant Dumper Status 05/27/20 21 1 CLOSED Fetus Data First Name Last Name Admitted to NICU Weight (g) Sex Living Outcome Pediatric Complications Fetus ID Race Codes Race Delivery Type 3486.76 1704 F Full Term [id number] Vaginal Delivery Jua Ncarlos Calculation Initial Juan Carlos Date Initial Exam [...] Domestic Partner Domestic Partner Phone Father Name Mixing Plant Dumper Status 05/27/20 21 1 CLOSED Fetus Data First Name Last Name Admitted to NICU Weight (g) Sex Living Outcome Pediatric Complications Fetus ID Race Codes Race Delivery Type 3855.53 2 M Full Term [id number] Vaginal Delivery Juan Carlos Calculation Initial Juan [...] Domestic Partner Domestic Partner Phone Father Name Mixing Plant Dumper Status 05/27/20 21 1 CLOSED Fetus Data First Name Last Name Admitted to NICU Weight (g) Sex Living Outcome Pediatric Complications Fetus ID Race Codes Race Delivery Type , Spontane ous [id number] Juan Carlos Calculation Initial Juan Carlos Date [...] Post Complications Tubal Sterilization Discharge Date Comments 6 miscarri a ge Discharge Information Feeding Method Contraceptive Method Maternal HG B and HCT Levels
--- NOTE | 2024-10-17 07:01 | MHC.SHP ---
Pre-Procedural Eval Section A - 24 Hr Update-Section A only Date of Service: 10/17/24 Section B - Complete if H&P > 30 days Chief Complaint: Intervertebral disc disorders with radiculopathy, Allergies: Allergies Allergy/AdvReac Type Severity Reaction Status Date / Time No Known Allergies Allergy Verified 10/03/24 13:04 Review of Systems Sugical H&P ROS: Negative: Constitution, Cardiovascular, Respiratory, Neurological, Psychiatric, Hem-Onc, Allergic/Immunologic, Gastrointestinal, Genitourinary, Musculoskeletal, Integumentary, Endocrine and Eyes/Ears/Nose/Throat Exam Surgical H&P Exam: Not Evaluated: HEENT, Not Evaluated: Heart, Not Evaluated: Lungs, Not Evaluated: Extremities, Not Evaluated: Abdomen, Not Evaluated: Skin and Not Evaluated: Neurological Exam Comment: The patient is awake, alert and in no acute distress. Proposed surgical incision site is clean, dry, no evidence of recent trauma or surgery. Plan I have reviewed the history and physical and performed a pertinent physical examination on my patient. No changes have occurred unless specified. Plan remains the same, left L5-S1 microdiskectomy. Time Spent With Patient Time: Total time managing care of this patient today __15__ minutes.
[2024-10-17] MEDS: Gabapentin 300 MG CAPSULE PO (07:48)
[2024-10-17] MEDS: Lactated Ringers 1,000 ML 100 ML IVCONT (07:48)
[2024-10-17] MEDS: methocarbamoL 750 MG TABLET PO (07:58)
--- NOTE | 2024-10-17 11:52 | W.PM.OPN ---
Operative Note Operative Note Date of Service: 10/17/24 Narrative: Preoperative diagnosis: Recurrent L5-S1 disc herniation causing left S1 radiculopathy Postoperative diagnosis: Same Procedure: Left redo L5-S1 lumbar microdiskectomy with microscope Surgeon: Marvin Montano MD, PhD Regional Ehs Manager: BILLIE Otero This 54-year-old female underwent a L5-S1 microdiskectomy in 2013. She presents with a classic recurrent S1 symptoms. An MRI shows left S1 nerve root compression caused by granulation tissue a possible disc herniation. The patient was offered a redo microdiskectomy to decompress the nerve root. The procedure complications were explained. The patient was consented. The patient was brought to the operating room and endotracheally intubated. The patient was turned in a prone position on the Wesley frame. Prepping and draping was done followed by time-out. A mid lumbar incision was made followed by release of the paravertebral muscles on the left side to expose the L5-S1 interspace. An intraoperative x-rays obtained to confirm the correct level. The microscope was brought in. The previous anatomy was extended cranially. The S1 nerve root was identified and retracted medially to expose the L5 S disc space. I could palpate a disc both medial from the S1 nerve root. I used a downward curve curette to push the mass down words and carefully removed with a pituitary. The disc space was inspected and any residual disc fragments were removed. This resulted in an excellent decompression of the S1 nerve root. Hemostasis was done. The microscope was removed. Marcaine was injected intramuscularly.The incision was closed in two layers. Steri-Strips used to approximate the incision. An op-site were taken there was used to cover the incision. All sponge and needle counts were correct. Patient was extubated and transported in stable condition to recovery room. this procedure was done with the aid of a physician assistant director of residence life who performed the initial exposure until the microscope was brought in and performed the closure of the incision. Anesthesia: General Blood loss: 10 ml Complications: None Specimen: None Surgical time: 45 minutes Disposition: Discharge home
--- NOTE | 2024-10-17 11:58 | PM.DS ---
DS: Providers Provider Date of Service: 10/17/24 Date of discharge: 10/17/24 Primary care physician: Nonstaff Physician DS: Summary Time Attestation Discharge Coordination Time (in mins): 15 Quality: Safe Use of Opioids Does Pt have an Active Cancer Diagnosis on the Problem List?: No Quality: Stroke Does the patient have a stroke diagnosis?: No Physical Exam Vital Signs: Vital Signs: Last Vital Signs Temp 98.0 F 10/17/24 07:33 Pulse 67 10/17/24 07:33 Resp 14 10/17/24 07:33 BP 121/66 10/17/24 07:33 Pulse Ox 96 10/17/24 07:33 O2 Del Method Room Air 10/17/24 07:33 BMI result Body Mass Index 26.9 Discharge Plan Discharge Patient Disposition: Home, Self-Care Referrals: Physician,Nonstaff [Primary Care Provider] - 1 Week Discharge Medications: New hydrocodone-acetaminophen 5-325 mg tablet 1 tab PO Q6H PRN (Reason: pain (scale score 7-10)) Qty: 20 0RF Rx Instructions: Partial Fill upon patient request. No Action acetaminophen-codeine 300-30 mg tablet 1 tab PO TID PRN (Reason: Pain) multivitamin Tablet 1 tab PO DAILY Discharge Orders: Discharge Order (Routine); Ordered 10/17/24 Ordered By: Jay Jay Portillo Diet: Advance to usual diet Activity on Discharge: As tolerated Activity Restrictions/Additional Instructions: After your spinal surgery we ask you to observe the following restrictions/guidelines: Activity: It is normal to feel some discomfort as you increase your activity, but that will improve with time. We ask you avoid heavy lifting or acitivities that cause pain. As a general rule, 8lbs is a safe limit for lifting right after surgery. Walk as much as you feel comfortable but not to exhaustion. You will feel extra tired the first few days after surgery. Stay well hydrated. It is OK to walk up and down stairs You may return to driving when you are off narcotics (such as vicodin, oxycodone, dilaudid, etc), and you are back to normal functional capacity. If you have any concerns please check with office before driving. Return to work is specific to each patient and each surgery, so please speak with your doctor/PA at first follow up. Please bring paperwork such as FMLA at that time if you need it filled out. Medications: We recommend you take 500mg Tylenol every 8 hours for the first few weeks after surgery, if you do not have any liver issues and can tolerate this medication. Do not exceed 4,000mg daily. We will give you a short supply of narcotics after surgery (usually one weeks worth). If you need more please call the office but do not use more than prescribed. You will need to give our office 48 hours notice if you need narcotics refilled and we do not fill narcotics on weekends or evenings. If you are on a narcotic, it is a good idea to take a stool softener such as colace or senna to avoid constipation If you take blood thinner such as aspirin, Plavix, Coumadin, Effient, Eliquis etc for conditions such as Afib, DVT, Pulmonary embolus, coronary disease, stents etc please speak with your surgeon about specific details as to when you can resume these medications. You can resume NSAIDs on post op day 1 (eg: Motrin, Naproxen, etc). Follow up: Please call the office, , after surgery to arrange a 3 week follow up for wound check. Wound Care: You may remove your dressing on the first day after surgery. ?You may ?leave open to air. Please do not remove the steri strips underneath. they will fall off on their own in one week. IT IS NORMAL FOR THE WOUND TO OOZE OR BE BLOODY FOR A FEW DAYS AFTER SURGERY. ?IF THIS HAPPENS JUST PLACE NEW DRESSING OVER IT TO AVOID STAINING CLOTHES. You may shower on post op day # 1 We ask that you do not let the water soak the wound. If it does get wet, just towel dry lightly. Please do not scrub your incision or place any type of chemical/ointment on the wound. No tub baths, pools or jacuzzis for one month. If you have any leaking or redness from your wound, or fevers, please call the office. Print Language: Croatian
[2024-10-17] MEDS: fentaNYL citrate/PF 100 MCG/2 ML VIAL 25 MCG IVPUSH (12:37)
[2024-10-17] MEDS: ondansetron HCL 4 MG/2 ML VIAL IVPUSH (13:10)
== END 2024-10-17 14:01 | disposition home or self-care (01) ==
PROVIDERS: Visit Provider Neurological Surgery
PROC: (CPT 63042; principal; 2024-10-17 09:30)
DX: M51.17 Intervertebral disc disorders with radiculopathy, lumbosacral region (principal); M54.50 Low back pain, unspecified; R26.2 Difficulty in walking, not elsewhere classified; Z98.890 Other specified postprocedural states
CPT/HCPCS: 63042; J0131; J0690; J1100; J1596; J1885; J2003; J2250; J2405; J2704; J3010

== ENCOUNTER → 2024-10-17 06:51 | Outpatient (BNV) | payer OTHER, SELFPAY | PROVIDERS: Visit Provider Neurological Surgery | DX: M51.17 Intervertebral disc disorders with radiculopathy, lumbosacral region (principal) | CPT/HCPCS: 63042; 99499 ==

== ENCOUNTER 2024-11-07 13:47 | Outpatient (AMB) | payer OTHER, SELFPAY ==
--- NOTE | 2024-11-07 13:47 | A.SPINEOV_ITS ---
Intake Visit Reasons: 1 post op Intake Note: Ms. Rushing is going to be over the phone to talk about her 1st post op. Stores Despatch Hand Required: No Allergies No Known Allergies Allergy (Verified 11/07/24 13:48) Assessment & Plan Assessment & Plan (1) Lumbar disc herniation with radiculopathy: Code(s): M51.16 - Intervertebral disc disorders with radiculopathy, lumbar region Category: Medical Plan Procedure: Procedure: Left redo L5-S1 lumbar microdiskectomy Tahira is a pleasant 54 year old female who underwent L5-S1 lumbar microdiskectomy a few weeks ago. To recap she was initially seen in clinic for severe pain radiating down her left buttock into her calf. Today she reports resolution of the shooting pain, but states that she still has some lateral calf dull pain. Overall she is doing very well since her surgery, has been ambulating regularly in is interested in engaging in exercise again. She has not been taking her narcotic pain medication. She feels she is able to manage with [id number] medications. We extensively discussed the postop healing course including exercise and weightlifting guidelines. The patients reports no new neurological deficits, and reports no issues with strength or ambulation. Tahira will call the office in the next few weeks to inform us if she is able to make it in for her 2nd postoperative visit. She [place] away, and her 1st postoperative visit was conducted via phone per her request. Jay Jay Montano MD,PhD [facility] Medications: Discontinued hydrocodone-acetaminophen 5-325 mg Partial Fill upon patient request. Discontinued Reason: Patient no longer taking 1 tab PO Q6H PRN 20 tabs 0RF pain (scale score 7-10) Coding Level of Care Code Global (43283) Diagnoses Lumbar disc herniation with radiculopathy M51.16
--- OUTSIDE RECORDS SUMMARY | 2024-11-07 15:10 | XMS_ITS | Data Portability ---
Author Organization [facility] [place], [facility] [place] Address [address] [place] [address] Care Team Providers Care Therapeutic Dietitian Name Role Phone WASHINGTON KHAN Primary Care Provider [phone] Assessment Encounter Date Assessment Date Assessment LastModified [...] Removal completed Margi Cortés NP [address] [facility] [place], [address], [facility]/ [place] 05/28/2023 10:21:21 Imaging Results None recorded. [...] 3 16 /min 170.18 cm 25.1 kg/m2 58306.7 8 g 65 /min 99 % 99 % 98.6 [degF] 108 mm[Hg] 70 mm[Hg] Dunia Hernandezkath [facility] 3 09:32:57 Social History Question Answer Notes LastModified by Organizat ion Details LastModified Time Tobacco Smoking Status Current Every Day Smoker [facility] 05/28/2023 09:31:04 What Is Your Level Of [...] MDCK, quadrivalent, PF 0 [facility] 05/28/2023 09:31:10 COVID-19, mRNA, LNP-S, PF, 100 mcg/0.5mL dose or 50 mcg/0.25mL dose 1 completed [facility] 05/28/2023 09:31:10 COVID-19 vaccine, vector-nr, rS-Ad26, PF, 0.5 mL 1 completed [facility] 05/28/2023 09:31:11 Tdap 1 completed [facility] 05/28/2023 09:31:11 Influenza, split virus, trivalent, preservative 1 completed Dunia palmer [facility]/[place]/ [place] 05/28/2023 09:31:11 Past Encounters Encounter ID Performer Location Encounter Start Date Encounter Closed Date Diagnosis/Indication Diagnosis SNOMED-CT Code Diagnosis ICD10 Code Diagnosis Note [id number] Margi Cortés NP _[place] [facility] [place] [address] [place] [address] 05/28/2023 09:00:19 05/28/2023 10:34:10 Impacted cerumen of bilateral ears [id number] H61.23 Consider OTC debrox or 1-2 drops [...] Joshi Member ID Guarantor Name 05/28/2023 1 [facility] Coleman Kristan [id number] Tahira Rushing Notes Date Note Type Note Provider Name and Address Organization Details Recorded Time 05/28/2023 text/html 52 yo f presents with b/l ear blockage, left worse with decreased hearing Once yearly requires ear wax removal. Denies f/c, dizziness, ear pain, nasal congestion, cough Margi Cortés NP [address], [place], [address], [place] [facility]/[place] 05/28/2023 10:22:52 OBGyn Episode No OBEpisode recorded.
--- OUTSIDE RECORDS SUMMARY | 2024-11-07 15:10 | XMS_ITS | Clinical Summary ---
Author Organization [facility] Address [address] [place] [address] Care Team Providers Care Technical Coordinator Name Role Phone Pretty Lu Primary Care Provider [phone] Social History Tobacco Use Types Packs/Day Years [...] on patient's age to complete this topic MENINGOCOCCAL B VACCINE Aged Out No l onger eligible based on patient's age to complete this topic Procedures Procedure Name Priority Date/Time Associated Diagnosis Comments +HPV, DNA PROBE, AMPLIFIED Routine 02/27/2021 9:51 AM EDT CYTOLOGY, REGIONAL TRUCK DRIVER Timed 02/27/2021 Encounter for gynecological examination without abnormal finding Screening for malignant neoplasm of cervix from Last 3 Months or Most Recently Relevant to Health Maintenance Results * HPV, DNA Probe, Amplified (02/27/2021 9:51 AM EDT) HPV DNA Probe [id number] 9:52 AM EDT Comment:HPV received in lab. [...] 9:08 AM EDT Comment: Test Performed by: [facility] Microbiology [facility] [address] [place] [address] 02/27/2021 9:51 AM EDT 03/04/2021 9:[address] [facility] - GENERAL ORDE RABSURESH Final Result Performing Organization Address City/[facility] Co de Phone Number [facility] [address] [place] [address] * Cytology, REGIONAL TRUCK DRIVER (PAP) (02/27/2021) Specimen from genital system (specimen) 02/27/2021 03/03/2021 9:[address] [facility] PATH[facility]Y/CYTOLOGY ORDERABL ES Final Result [facility] [address] [place] [address] from Last 3 Months or Most Recently Relevant to Health Maintenance Insurance Care Teams Technical Coordinator Relationship Specialty Start Date End Date Pretty Lu PA [address] [place], [place] [id number] PCP - General Physician Distributor Sales Consultant 03/24/24
--- OUTSIDE RECORDS SUMMARY | 2024-11-07 15:11 | XMS_ITS | Data Portability ---
Author Organization [place] - [facility] Address [address] [place] [address] Care Team Providers Care Charge Manager Name Role Phone [facility] Primary Care Provider Assessment Encounter Date Assessment [...] recorded. Lab biopsy, endometria l 2020 021 [facility], [address] [place] [address], [id number], 10:02:25 Referral None recorded. Procedures None recorded. [...] nt Name: Tahira Rushing XR Chart ID: [id number] MRN:[id number] Surgi tito Patho logy Repor t Colle cted: 08/18 18:00 EST Speci men #: [id number] Recei bladimir: 08/19 04:29 EST Surgi [...] d 08/19 11:40 :16 EST Not Available [facility] [address], [address], 08/24/2021 15:26:28 05/28/20 21 02/16/2021 MAMMO , [...] 21 Endometrial Biopsy completed Annamarie Pak MD [address] [place] [address],[address], [place], [address], [facility] 08/18/2021 14:36:21 08/18/20 21 Pelvic Transvaginal Non-OB completed HUSSAIN GUILLAUME [address], [place], [address], [facility] 08/18/2021 15:23:37 Dilation and Curettage completed Ivania Harper [facility] 05/27/2021 12:47:57 Back Surgery completed Ivania Harper [facility] 05/27/2021 12:48:10 procedure on foot completed Ivania Harper [facility] 05/27/2021 12:48:21 Imaging Results Imaging Date [...] Updated DateTime 05/27/2021 170.18 cm 25.5 kg/m2 56766.56 g 140 mm[Hg] 80 mm[Hg] Ivania Harper [facility] 13:09:46 Date Recorded Body height Body mass index (BMI) Body weight Systolic blood pressure Diastolic blood pressure Provider Name and Address Organization Details Last Updated DateTime 08/18/2021 170.18 cm 25.5 kg/m2 26152.56 g 132 mm[Hg] 78 mm[Hg] Ivania Harper [facility] 14:23:47 Social History Question Answer Notes LastModified by Organizat ion Details LastModified Time Tobacco Smoking Status Current [facility]/27/2021 12:49:55 Do You Have An Advance Directive? No Information not available 05/27/2021 What Is Your Level Of Alcohol Consumption? Occasional Information not available 05/27/2021 Are You Currently Employed? Yes Information not available 05/27/2021 What Is The Highest Grade Or Level Of School You Have Completed Or The Highest Degree You Have Received? 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 Cross Insurance In EP Information not available [...] SNOMED-CT Code Diagnosis ICD10 Code Diagnosis Note [id number] MARQUISE JORDAN MD [facility] [address] [place] [address] 05/27/2021 12:15:23 05/27/2021 16:36:29 Abnormal uterine bleeding [id number] 9100 N93.9 [id number] Annamarie Pak MD [facility] [address] [place] [address] 08/18/2021 13:51:00 08/18/2021 18:18:57 Abnormal uterine bleeding [id number] 9100 N93.9 [id number] DIANELYS AVILES [facility] [address] [place] [address] 08/18/2021 13:50:16 08/18/2021 18:32:40 [id number] MARQUISE JORDAN MD [facility] [address] [place] [address] 08/26/2021 13:14:03 08/26/2021 18:47:53 Perimenopausal state [id number] 54238 Z78.0 Health Concerns Section Related Observation LastModified by Organization Detai ls LastModified Time None Recorded Concern Status LastModified by Organization Details LastModified Time None Recorded Advance Directives Directive N: Payers Encounter Date Sequence Insurance Name Policy Number Policy Joshi Covered Member ID Joshi Member ID Guarantor Name 05/27/2021 1 [place] [id number] [facility] [id number] Tahira Nirk 08/18/2021 1 [place] [id number] [facility] [id number] Tahira Nirk 08/18/2021 1 [place] [facility] (PPO) [id number] Tahira Smithk [id number] Tahira Smithk 08/26/2021 1 [place] [facility] TO [facility] (PPO) [id number] Tahira Smithk [id number] Tahira Rushing Notes Date Note Type [...] months. Also reports onset of hot flushes. [id number] x1, MAB w/ D&CPMH: deniesPSH: foot surgery, D&C, back surgeryMeds: NoneNKDA MARQUISE JORDAN MD [address] [place] [address],[place] [address], [place], [address], [facility] 05/27/2021 15:12:07 08/26/2021 text/html Tahira presents fo r telehealth visit to discuss results of US and EMB. Reports she is doing well. Has a period every other month now. Lasting 3-4 days. Sometimes heavy. MARQUISE JORDAN MD [address] [place] [address],SUITE [facility], [place], [address], [facility] 08/26/2021 14:16:51 OBGyn Episode Ob Episode Information Episode Created Date Number of Fetuses Patient Bloodtype Patient rh Status Prepregnancy Weight lbs Domestic Partner Domestic Partner Phone Father Name Bit Shaver Status 05/27/20 21 1 CLOSED Fetus Data First Name Last Name Admitted to NICU Weight (g) Sex Living Outcome Pediatric Complications Fetus ID Race Codes Race Delivery Type 3486.76 1704 F Full Term [id number] Vaginal Delivery Juan Carlos Calculation Initial Juan [...] Domestic Partner Domestic Partner Phone Father Name Bit Shaver Status 05/27/20 21 1 CLOSED Fetus Data First Name Last Name Admitted to NICU Weight (g) Sex Living Outcome Pediatric Complications Fetus ID Race Codes Race Delivery Type 3855.53 2 M Full Term [id number] Vaginal Delivery Juan Carlos Calculation Initial Juan [...] Domestic Partner Domestic Partner Phone Father Name Bit Shaver Status 05/27/20 21 1 CLOSED Fetus Data First Name Last Name Admitted to NICU Weight (g) Sex Living Outcome Pediatric Complications Fetus ID Race Codes Race Delivery Type , Spontane ous [id number] Juan Carlos Calculation Initial Juan Carlos Date [...]
--- OUTSIDE RECORDS SUMMARY | 2024-11-07 15:11 | XMS_ITS | Clinical Summary ---
Author Organization [facility] [address] & [facility] lin Address [address] [place] [address] Care Team Providers Care Regional Commercial Sales Manager Name Role Phone No, Pcp SEWER PIPE OFFBEARER Primary Care Provider Unavailabl e Social History [...] Adults 18 yrs or above (or HM Modifier)([facility]) 1989 Hepatitis C Virus Infection in Adolescents and Adults: Screening (or Modifier) ([facility]) 1989 [facility] Screening Reminder: Amy young for all adults ([facility]) 1989 Tobacco Smoking Cessation: i n Adults excluding Women: Behavioral and Pharmacotherapy Interventions ([facility]) 1989 DTaP/Tdap/Td Vaccines ([facility]) (1 - Tdap) 1990 Cervical Cancer Screenin 1-65 yrs of age (or Modifier) 1992 Cervical Cancer Screening: P ap every 3 yrs pts age 21-65 1992 Cervical Cancer: Pap Screeni ng with Modifier timing ([facility]) 1992 Cervical Cancer: hrHPV alone or with cotesting Pap for Pts 30-65yrs screening every 5yrs ([facility]) 1992 Colorectal Cancer Screening 45 -75 Yrs (or HM Modifier) 2016 Colorectal Cancer: FLEXIBLE SIGMOIDOSCOPY Screening every 5 yrs 2016 Colorectal Cancer: Fecal Immunochemical Test (FIT) Annually [facility] 2016 Colorectal Cancer: High-sens itivity gFOBT Screening Annually [facility] 2016 Colorectal Cancer: Stool Col oguard Screening every 3 yrs 2016 Colorectal Cancer:CT Colonog michael Screening every 5 yrs 2016 Lipid Screening: Every 5 yrs for Women aged 45+ (or HM Modifier) ([facility]) 2017 Breast Cancer: Screening Amy ually age 50-74 yrs (or HM Modifier)([facility]) 2021 Zoster/Shingles Vaccine Seri es Screening: Adults aged 18+ yrs (or HM Modifiers)([facility]) (1 of 2) 2021 Flu Vaccination: Yearly for ages 18mos through 64 years (or Modifier)([facility]) 04/26/2024 COVID-19 Vaccine Screening: Initial Series and Booster Status ([facility]) (2023- season) 2024 Pneumococcal Vaccination Scr eening: Pts 0-19 & 19-64 yrs of age ([facility]) Aged Out No longer eligible based on patient's age to complete this topic Medical Devices Not on file Care Teams Regional Commercial Sales Manager Relationship Specialty Start Date End Date No, Pcp, SEWER PIPE OFFBEARER N/A Do not use PCP - General Family Medicine 11/13/20
== END 2024-11-07 15:23 | disposition home or self-care (01) ==
LOC: HO.HNS 13:47
PROVIDERS: Visit Provider Physician Assistant
DX: M51.16 Intervertebral disc disorders with radiculopathy, lumbar region (principal)
CPT/HCPCS: 99024

== ENCOUNTER → 2024-11-07 13:47 | Outpatient (BNVA) | payer OTHER, SELFPAY | PROVIDERS: Visit Provider Physician Assistant ==